=== PATIENT | female | born 1990 | race African-American/Black ===

== ENCOUNTER 2016-06-26 11:39 | Emergency (ER) | payer SELFPAY ==
[~2016-06-26] VITALS: Ht 162.6 cm; Wt 67.1 kg
[2016-06-26] MEDS ORDERED: TETRACAINE 0.5% OPHTH SOLN 4 ML BTL (SINGLE DOSE ONLY) OP ONE (12:30)
[2016-06-26] MEDS ORDERED: BSS 15 ML IR ONE (12:30)
[2016-06-26] MEDS ORDERED: FLUORESCEIN (FLUOR-I-STRIPS) 1 MG STRP OU ONE (12:30)
[2016-06-26] MEDS ORDERED: RX-GENTAMICIN SULFATE 0.3% OP 5 ML BTL OD STA (12:48)
[2016-06-26] MEDS ORDERED: IBUPROFEN 800 MG (MOTRIN) TAB PO STA (12:48)
--- NOTE | 2016-06-26 12:55 | ED EENT ---
History of Present Illness General Chief Complaint: Eye Problems Stated Complaint: R EYE SCRATCH Nursing Triage Note: AMB TO ED REPORTS HAD R INJURY IN DEC WAS SEEN IN ED AT [facility] KAI PARNELL AFTER. DID NOT GET TO USE EYE DROPS CON'T TO HAVE PROBLEM WITH R EYE. E Source: patient Exam Limitations: no limitations History of Present Illness Time seen by provider: 11:55 Initial Comments 25-year-old female patient presents to the emergency department with complaints of right eye pain and swelling. Patient states Tuesday or tuesday she noticed the rt eye was irritated. Throughout the week she has noticed symptoms becoming progressively worse. Now reports right eyelid is swollen. she did have her eyebrows waxed which caused an abrasion and burn, but states symptoms were prior to this incident. Reports blurry vision, foreign-body sensation, watering of the eye. Timing/Duration: abrupt, other (Tuesday or Tuesday onset) Location: eye (R) Prearrival Treatment: over the counter meds Modifying Factors: Worse With Other (light sensitivity. Worse with rubbing the eye.) Allergies and Home Medications Allergies Coded Allergies: hydrocodone (Verified Allergy, Unknown, 06/26/16) Home Medications Ibuprofen 800 Mg Tablet, 800 MG PO Q8H PRN for PAIN, #20 Ref 0 Prescribed by: STEPHANI MORSE on 06/26/16 1305 Review of Systems Constitutional: no symptoms reported Eyes: See HPI, Blurred Vision, Drainage (clear watering), Inflammation, Pain, Photophobia Ears: No Symptoms Reported Nose: no symptoms reported Mouth: no symptoms reported Throat: no symptoms reported Respiratory: no symptoms reported Cardiovascular: no symptoms reported Skin: see HPI Neurological: No Symptoms Reported All Other Systems Reviewed Negative Unless Noted: Yes (Negative excepted noted.) Past Wusxqnf-Xrbjgy-Yvjooi Hx Patient Social History Alcohol Use: Denies Use Recreational Drug Use: No Smoking Status: Never a Smoker Recent Foreign Travel: No Contact w/Someone Who Travel: No Recent Infectious Disease Expo: No Recent Hopitalizations: No Surgeries HX Surgeries: No Respiratory Hx Respiratory Disorders: No Cardiovascular Hx Cardiac Disorders: No Neurological Hx Neurological Disorders: No Genitourinary Hx Genitourinary Disorders: No Gastrointestinal Hx Gastrointestinal Disorders: No Musculoskeletal Hx Musculoskeletal Disorders: No Endocrine Hx Endocrine Disorders: No HEENT HX ENT Disorders: No Cancer Hx Cancer: No Psychosocial Hx Psychiatric Problems: No Reviewed Nursing Assessment Reviewed/Agree w Nursing PMH: Yes Family Medical History Significant Family History: No Pertinent Family Hx Physical Exam Vital Signs Vital Sign - Last 12Hours 06/26/16 11:45 Temp 99.4 Pulse 117 Resp 18 B/P (MAP) 110/74 Pulse Ox 98 O2 Delivery Room Air Eyes: right eye conjunctival inflammation, right eye corneal abrasion, right eye other (scabbed abrasion of the rt supraorbital ridge w/o erythema or warmth. mild swelling of the rt upper lid.), left eye normal inspection, bilateral eye EOMI, bilateral eye PERRL Ears: bilateral ear auricle normal Nose: normal inspection Mouth/Throat: normal mouth inspection, pharynx normal Neck: supple, normal inspection Neurologic/Psychiatric: alert, normal mood/affect, oriented x 3 Skin: normal color, warm/dry, other (scabbed abrasion of the rt supraorbital ridge w/o erythema or warmth. mild swelling of the rt upper lid.) Progress/Results/Core Measures Results/Orders My Orders Orders - STEPHANI MORSE Fluorescein Strips (Mzapw-B-Ttenru) (06/26/16 12:30) Balanced Salt Irrigation Soln (Bss Irrig (06/26/16 12:30) Tetracaine 0.5% Ophth Maci Sdv (Tetracai (06/26/16 12:30) Ibuprofen Tablet (Motrin Tablet) (06/26/16 12:48) Rx-Gentamicin Ophth Soln (Rx-Gentamicin (06/26/16 12:48) Medications Given in ED Vital Signs/I&O Blood Pressure Mean: 86 Departure Communication Progress Notes 2 drops of tetracaine ophthalmic solution was placed in the right eye and repeated after approximately 5 minutes. Arnold-Pen shows pressures of 15, 15, and 16 mmHg in the right eye. Patient case discussed with Dr. Etienne. Dr. Etienne requests patient to come to his office at 2 o'clock today to be evaluated. States he does not want the patient was sent home with gentamicin as he will give her medications at the office. I discussed this plan with the patient. Patient states she will cut his office at 2 o'clock as instructed. Proceed with discharge. Impression Impression: Primary Impression: Corneal abrasion Qualified Codes: S05.01XA - Injury of conjunctiva and corneal abrasion without foreign body, right eye, initial encounter Disposition: HOME, SELF-CARE Condition: Improved Departure-Patient Inst. Decision time for Depature: 13:01 Referrals: MICHEL ETIENNE OD NO,LOCAL PHYSICIAN (PCP) Primary Care Physician Patient Instructions: Corneal Abrasion (DC) Add. Discharge Instructions: All discharge instructions reviewed with patient and/or family. Voiced understanding. Medications as instructed. Tylenol Extra Strength over-the- counter as directed for pain. Cool compresses if needed. Avoid bright lights. Follow-up with Dr. Etienne has been outpatient for recheck. Return to the emergency department for worsened pain, redness, fever, drainage, headache, dizziness, vomiting, or any other concerns. GO TO DR. ETIENNE'S OFFICE AT 2:00 TODAY FOR APPOINTMENT. Scripts Ibuprofen (Ibuprofen) 800 Mg Tablet 800 MG PO Q8H Y for PAIN, #20 TAB 0 Refills Prov: STEPHANI MORSE 06/26/16 Work/School Note: Local Medical Staff Listing Images Eye 1 - Abrasion, Dye uptake (fluorescein) STEPHANI MORSE Jun 26, 2016 12:55
[2016-06-26] MEDS ORDERED: IBUP-1780 PO (13:05)
[2016-06-26 13:19] VITALS: BP 110/74
--- OUTSIDE RECORDS SUMMARY | 2016-08-01 04:48 | XMS REPORT ---
Author Author [facility] Medical Staff Organization [facility] Address [address] [place] [id number] Phone [phone] Care Team Providers Care Learning Center Coordinator Name Role Phone GAVIN RUBY PP [phone] Summary purpose TRANSITION OF CARE AUTO GENERATION Chief Complaint and Reason for Visit Admit Diagnosis 1 BACKACHE NOS Problem list No authorized problems tracked for continuity of care are available for this visit. Encounters No authorized problems tracked for encounter diagnoses are available for this visit. Medications No medications recorded for this patient visit Allergies, adverse reactions, alerts Allergen Category Ingredient Status Reaction Severity Onset Hydrocodone Drug Allergy Hydrocodone Confirmed or Verified Seizures Severe Adolescence acetaminophen Drug Allergy acetaminophen Confirmed or Verified Neomycin Drug Allergy Neomycin Confirmed or Verified adhesive Drug Allergy adhesive Confirmed or Verified Immunizations No immunizations recorded for this patient visit Relevant diagnostic tests and/or laboratory data RESULTS Routine Urinalysis [id number]:00:00 Result Normal Range Units Color Straw Clarity Clear Specific [place] 1.028 1.003-1.035 pH 5.5 4.5-8.0 Glucose NEGATIVE Bilirubin 1+ Ketones 1+ Protein TRACE Urobilinogen 0.2 0-0.2 E.U./dL Nitrites NEGATIVE Blood 3+ Leukocytes NEGATIVE WBCs No WBC's Seen RBCs Too numerous to count Squamous Epithelial Few Bacteria Rare Amount Mucous 2+ Chemistry [id number]:50:00 Result Normal Range Units Sodium 138 134-145 mEq/l Potassium 3.7 3.5-5.1 mEq/l Chloride 99 98-107 mEq/l CO2 25.0 22-28 mEq/l Glucose 97 70-105 mg/dl BUN 7 7-18 mg/dl Creatinine 0.89 0.6-1.0 mg/dl Calcium 8.9 8.4-10.2 mg/dl TP - Total Protein 8.2 6.0-8.3 g/dl Albumin 4.7 3.5-5 g/dl Bilirubin - Total 0.7 0.1-1.0 mg/dl AST 17 10-42 IU/L ALT 25 12-65 IU/L ALP 68 25-72 IU/L Osmolality L 273.6 280-300 mOsm/L Albumin/Globulin Ratio 1.3 0-8 Anion GAP 14.0 8-16 BUN/Creatinine Ratio L 7.9 10-20 Estimated GFR 94 >=60 mL/min/1.7 Hematology [id number]:50:00 Result Normal Range Units WBC H 14.9 4.8-10.8 103/uL RBC 4.5 4.2-5.4 106/uL HGB 13.4 12.0-16.0 g/dl HCT 40.0 36.9-47.0 % MCV 88.1 81-99 FL MCH 29.5 27-31 pg MCHC 33.5 33-37 g/dl RDW 13.2 11.5-15.5 % PLT 297 130-400 103/uL MPV 10.2 7.3-10.4 FL Neutro % H 82.0 40-70 % Lymph % L 11.5 20-40 % [place] % 5.9 0-10.0 % Eos % 0.3 0-7.0 % Baso % 0.3 0-2 % Neutro # H 12.2 1.5-7.5 103/uL Lymph # 1.7 0.9-4.0 103/uL [place] # H 0.9 0-0.8 103/uL Eos # 0.1 0-0.6 103/uL Baso # 0.0 0-0.1 103/uL Body Fluid [id number]:00:00 Result Normal Range Units pH 5.5 4.5-8.0 Radiology Results [id number]:13:00 CT RENAL STONE CHERYL PACs Image DATE OF EXAM: Jul 15 2014 [id number] RENAL STONE PROTOCOL WO CONTR : RADIOLOGY REPORT DATE OF SERVICE: 07/15/14 HISTORY: Patient has right back pain with hematuria. CT RENAL STONE [id number] HOURS Images were obtained from diaphragms to symphysis pubis. No intravenous or oral contrast was utilized. This patient has very little intraperitoneal and retroperitoneal fat structures. Lung bases are clear. The liver and spleen are unremarkable. No biliary ductal dilatation is seen and no calcified stones are seen in gallbladder. Stomach, pancreas, and adrenal glands are normal. No aneurysm of aorta is seen. No adenopathy is identified in abdomen or pelvis. The kidneys show faint calcification in medullary aspect of both kidneys diffusely. This suggests "medullary sponge kidney." There is a 3 mm nonobstructing calculus in the mid collecting system of the right kidney. No hydronephrosis or mass in either kidney is seen. The ureters are not well delineated and cannot be followed due to lack of surrounding fat. However, there are no abnormal calcifications along the course of the ureters so no ureteral calculi are suspected. Bowel appears normal. The appendix is not seen as a separate structure with any absolute certainty, but there is no secondary evidence of appendicitis. No mesenteric mass or ascites are seen. There is no hernia. IMPRESSION: Probable medullary sponge kidney process. 3 mm nonobstructing calculus within the right kidney mid collecting system. No hydronephrosis or ureteral calculi. Otherwise nonspecific with some limitations due to patient's lack of intraperitoneal and retroperitoneal fat. DO CALI Zurita/barbara 07/15/2014 08:14:00 / 07/15/2014 08:51:28 cc:Gavin Jama PA-C This document has been electronically Signed by: On: DATE OF EXAM: Jul 15 2014 [id number] RENAL STONE PROTOCOL WO CONTR : RADIOLOGY REPORT DATE OF SERVICE: 07/15/14 HISTORY: Patient has right back pain with hematuria. CT RENAL STONE [id number] HOURS Images were obtained from diaphragms to symphysis pubis. No intravenous or oral contrast was utilized. This patient has very little intraperitoneal and retroperitoneal fat structures. Lung bases are clear. The liver and spleen are unremarkable. No biliary ductal dilatation is seen and no calcified stones are seen in gallbladder. Stomach, pancreas, and adrenal glands are normal. No aneurysm of aorta is seen. No adenopathy is identified in abdomen or pelvis. The kidneys show faint calcification in medullary aspect of both kidneys diffusely. This suggests "medullary sponge kidney." There is a 3 mm nonobstructing calculus in the mid collecting system of the right kidney. No hydronephrosis or mass in either kidney is seen. The ureters are not well delineated and cannot be followed due to lack of surrounding fat. However, there are no abnormal calcifications along the course of the ureters so no ureteral calculi are suspected. Bowel appears normal. The appendix is not seen as a separate structure with any absolute certainty, but there is no secondary evidence of appendicitis. No mesenteric mass or ascites are seen. There is no hernia. IMPRESSION: Probable medullary sponge kidney process. 3 mm nonobstructing calculus within the right kidney mid collecting system. No hydronephrosis or ureteral calculi. Otherwise nonspecific with some limitations due to patient's lack of intraperitoneal and retroperitoneal fat. Karina Perez DO MW/nh 07/15/2014 08:14:00 / 07/15/2014 08:51:28 cc:Gavin Jama PA-C This document has been electronically Signed by: KARINA PEREZ DO On: Jul 15 20145:13P Result Amended on 2014-07-15 at 17:14:00. Previous status was IN. [id number]:50:00 Result Normal Range Units MPV 10.2 7.3-10.4 FL History of procedures Procedure Code Code Type Description Date Performed Performing Physician 26239 CPT-4 COMPLETE CBC W/AUTO DIFF WBC 07-14-2014 VANE FINN 92396 CPT-4 COMPREHEN METABOLIC PANEL 07-14-2014 VANE FINN 40900 CPT-4 ROUTINE VENIPUNCTURE 07-14-2014 EMMA CROCKETT 39896 CPT-4 URINALYSIS, AUTO W/SCOPE 07-15-2014 VANE FINN 24330 CPT-4 URINE TEST 07-15-2014 VANE FINN 45429 CPT-4 CT ABD & PELVIS W/O CONTRAST 07-15-2014 VANE FINN J1885 CPT-4 TORADOL SYR 30MG/ML 07-14-2014 VANE FINN J2550 CPT-4 PROMETHAZIEN 25MG/ML 07-14-2014 VANE FINN J2060 CPT-4 LORAZEPAM INJECTION 07-14-2014 VANE FINN J2270 CPT-4 MORPHINE SULFATE INJECTION 07-14-2014 VANE FINN 23097 CPT-4 EMERGENCY DEPT VISIT 07-14-2014 VANE FINN 29230 CPT-4 EMERGENCY DEPT VISIT 07-14-2014 VANE FINN 47867 CPT-4 THER/PROPH/DIAG INJ, IV PUSH 07-14-2014 VANE FINN 55586 CPT-4 TX/PRO/DX INJ NEW DRUG ADDON 07-14-2014 VANE FINN 03690 CPT-4 HYDRATE IV INFUSION, ADD-ON 07-14-2014 VANE FINN Functional status Functional Status Finding Observation Time Abdomen Appearance flat : Abdomen soft :30 Olivas no : Urination urgency :30 Quality sym/unlabored : Cough absent : Secretions no : Airway natural : Chest Tube no : Oxygen no : Temp >100.4 no : Temp <96.8 no : Chills with rigors no : HR > 90bpm yes : Respirations > 20 no : Systolic <90 no : headache stiff neck no :30 IV Site Location Right AC :33 IV Type peripheral :33 IV Site Information discontinued :33 IV Site Start Attmpt 1 times :00 IV Site Rick 20 :00 IV Site Appearance WNL :00 IV Site Color clear :00 IV Site Patent yes :00 Dressing Type occlusive :00 Nursing Note Patient discharge to home. No changes to treatment made at this time. she ambulated from unit in stable condition. :12 Vital signs Type Value Date Respiration Rate 18breaths per minute :12 Pulse 104beats per minute :12 Oxygen Saturation 99% :12 BP Systolic 105mmHg :12 BP Diastolic 59mmHg :12 Temperature 98.6F :12 Height 63inches :35 Weight 123LB :35 Social history No Social History or smoking status observations were recorded for this visit. ( Unknown if ever smoked.) Treatment Plan No treatment plan text is available for this visit. Hospital discharge instructions Dismissal Condition good Disposition on DC home DC Inst/Educ Give yes Med/Side Effects Rev yes
--- OUTSIDE RECORDS SUMMARY | 2016-08-01 04:49 | XMS REPORT ---
Author Author [facility] Medical Staff Organization [facility] Address [address] [id number] Phone [phone] Care Team Providers Care Hunter Trapper Name Role Phone GAVIN RUBY PP [phone] Summary purpose TRANSITION OF CARE AUTO GENERATION Chief Complaint and Reason for Visit No authorized Reason for Visit (Admitting Diagnosis) is available for this visit. Problem list No authorized problems tracked for [...] tests and/or laboratory data RESULTS Routine Urinalysis [id number]:00:00 Result Normal Range Units Color Straw Clarity Clear Specific [place] 1.028 1.003-1.035 pH 5.5 4.5-8.0 Glucose NEGATIVE Bilirubin 1+ Ketones 1+ Protein TRACE Urobilinogen 0.2 0-0.2 E.U./dL Nitrites NEGATIVE Blood 3+ Leukocytes NEGATIVE WBCs No WBC's Seen RBCs Too numerous to count Squamous Epithelial Few Bacteria Rare Amount Mucous 2+ Chemistry [id number]:50:00 Result Normal Range Units Sodium 138 134-145 [...] 10-20 Estimated GFR 94 >=60 mL/min/1.7 Hematology [id number]:50:00 Result Normal Range Units WBC H 14.9 4.8-10.8 103/uL RBC 4.5 4.2-5.4 106/uL HGB 13.4 12.0-16.0 g/dl HCT 40.0 36.9-47.0 % MCV 88.1 81-99 FL MCH 29.5 27-31 pg MCHC 33.5 33-37 g/dl RDW 13.2 11.5-15.5 % PLT 297 130-400 103/uL MPV 10.2 7.3-10.4 FL Neutro % H 82.0 40-70 % Lymph % L 11.5 20-40 % [place] % 5.9 0-10.0 % Eos % 0.3 0-7.0 % Baso % 0.3 0-2 % Neutro # H 12.2 1.5-7.5 103/uL Lymph # 1.7 0.9-4.0 103/uL [place] # H 0.9 0-0.8 103/uL Eos # 0.1 0-0.6 103/uL Baso # 0.0 0-0.1 103/uL Body Fluid [id number]:00:00 Result Normal Range Units pH 5.5 4.5-8.0 Radiology Results [id number]:13:00 CT RENAL STONE CHERYL PACs Image DATE OF EXAM: Jul 15 2014 [id number] RENAL STONE PROTOCOL WO CONTR : RADIOLOGY REPORT DATE OF SERVICE: 07/15/14 HISTORY: Patient has right back pain with hematuria. CT RENAL STONE [id number] HOURS Images were obtained from diaphragms to [...] Zurita/barbara 07/15/2014 08:14:00 / 07/15/2014 08:51:28 cc:Gavin aJma PA-C This document has been electronically Signed by: On: DATE OF EXAM: Jul 15 2014 [id number] RENAL STONE PROTOCOL WO CONTR : RADIOLOGY REPORT DATE OF SERVICE: 07/15/14 HISTORY: Patient has right back pain with hematuria. CT RENAL STONE [id number] HOURS Images were obtained from diaphragms to [...] intraperitoneal and retroperitoneal fat. Karina Perez DO MW/ia 07/15/2014 08:14:00 / 07/15/2014 08:51:28 cc:Gavin Jama PA-C This document has been electronically Signed by: KARINA PEREZ DO On: Jul 15 20145:13P Result Amended on 2014-07-15 at 17:14:00. Previous status was MI. :50:00 Result Normal Range Units MPV 10.2 7.3-10.4 FL History of procedures No procedures recorded for this patient visit. Functional status Functional Status Finding Observation Time Abdomen Appearance flat :30 Abdomen soft :30 Olivas no [id number]:30 Urination urgency :30 Quality sym/unlabored :30 Cough absent :30 Secretions no :30 Airway natural :30 Chest Tube no :30 Oxygen no :30 Temp >100.4 no : Temp <96.8 no :30 Chills with rigors no :30 HR > 90bpm yes :30 Respirations > 20 no :30 Systolic <90 no :30 headache stiff neck no :30 IV Site Location Right AC :33 IV Type peripheral :33 IV Site Information discontinued :33 IV Site Start Attmpt 1 times [id number]:00 IV Site Rick 20 [id number]:00 IV Site Appearance WNL [id number]:00 IV Site Color clear :00 IV Site [...]
--- OUTSIDE RECORDS SUMMARY | 2016-08-01 04:49 | XMS REPORT | Continuity of Care Document ---
Demographics Preferred Language Unknown Marital Status Unknown Pentecostalism Affiliation Unknown Race Unknown Ethnic Group Unknown Author Author [facility] Organization [facility] Address Unknown Phone Unavailable Allergies Active Description Code Type Severity Reaction Onset Reported/Identified Relationship to Patient Clinical Status Yes acetaminophen 1605 Drug Allergy N/A N/A Confirmed or Verified Yes adhesive 3245 Drug Allergy N/A N/A Confirmed or Verified Yes Hydrocodone 1554 Drug Allergy Severe Seizures Yes Neomycin 2775 Drug Allergy N/A N/A Confirmed or Verified Medications Problems Procedures Results Test Result Range CBC WITH DIFF - 07/14/14 00:00 BASO% 0.3 % 0-2 EOS% 0.3 % 0-7.0 HCT 40.0 % 36.9-47.0 HGB 13.4 G/DL 12.0-16.0 LYMPH% 11.5 % 20-40 MCH 29.5 PG 27-31 MCHC 33.5 G/DL 33-37 MCV 88.1 FL 81-99 MONO% 5.9 % 0-10.0 MPV 10.2 FL 7.3-10.4 NEUTRO% 82.0 % 40-70 PLT 297 10^3u 130-400 RBC 4.5 10^6u 4.2-5.4 RDW 13.2 % 11.5-15.5 WBC 14.9 10^3u 4.8-10.8 NEUTRO# 12.2 10^3u 1.5-7.5 LYMPH# 1.7 10^3u 0.9-4.0 MONO# 0.9 10^3u 0-0.8 EOS# 0.1 10^3u 0-0.6 BASO# 0.0 10^3u 0-0.1 CMP - 07/14/14 00:00 ALB 4.7 G/DL 3.5-5 ALP 68 IU/L 25-72 ALT 25 IU/L 12-65 AST 17 IU/L 10-42 BCR 7.9 10-20 BUN 7 MG/DL 7-18 CA 8.9 MG/DL 8.4-10.2 CL 99 MEQ/L 98-107 CO2 25.0 MEQ/L 22-28 CREA 0.89 MG/DL 0.6-1.0 EGFR 94 eGFR >=60 GLU 97 MG/DL 70-105 K 3.7 MEQ/L 3.5-5.1 NA 138 MEQ/L 134-145 OSMSC 273.6 MOSML 280-300 TBIL 0.7 MG/DL 0.1-1.0 TP 8.2 G/DL 6.0-8.3 Albumin/Globulin Ratio 1.3 0-8 Anion Gap 14.0 8-16 UCG GROUP - 07/15/14 00:00 UCG N Negative UA - 07/15/14 00:00 PH 5.5 4.5-8.0 SG 1.028 1.003-1.035 UABILI 1+ UABLD 3+ UACOLOR STRAW UAGLU NEGATIVE UAKET 1+ UALEUK NEGATIVE UANIT NEGATIVE UAURO 0.2 0-0.2 CLARITY CL PROTEIN TRACE UA WBC NOWBC UA RBC TNTC SQUAMOUS EPITHELIAL CELLS FEW BACTERIA RARE MUCOUS 2+ Encounters ACCT No. Visit Date/Time Discharge Status Pt. Type Provider Facility Loc./Unit Complaint [id number] 07/14/2014 22:25:00 07/15/2014 03 :15:00 DIS Emergency VANE FINN [facility] EMR [id number] 08/09/2013 20:02:00 08/09/2013 20 :40:00 DIS Emergency LITO GOVEA W [facility] EMR [id number] 08/09/2013 08:23:00 08/09/2013 08 :40:00 DIS Emergency VIKI ANGUIANO [facility] EMR [id number] 02/17/2014 00:00:00 Document Registration
--- OUTSIDE RECORDS SUMMARY | 2016-08-01 04:49 | XMS REPORT | CCD ---
Author Author NICHOLAS LAMBERT Organization Unknown Address [address] [address] [place], [place] [id number] Care Team Providers Care Clip Wrapper Name Role Phone AIMEE ER, PEPE DO Attphys AIMEE VERONICA, PEPE DO Prisurg Vital Signs Unknown or Not Available. Allergies Unknown or Not Available. Procedures Procedure Code Procedure Type Date CBC W/ AUTO DIFF (RFLX MAN DIFF IF IND) 6865743 SNOMED CT 01/13/2015 COMPREHENSIVE METABOLIC PANEL 335723728 SNOMED CT 2014 C REACTIVE PROTEIN 35461573 SNOMED CT 01/13/2015 CULTURE BLOOD 50112264 SNOMED CT 01/13/2015 BETA HCG QUANTITATIVE 144566901 SNOMED CT 01/13/2015 LACTIC ACID 1251561 SNOMED [address] 01/13/2015 UA W/MICRO C&S IF IND 611637035 SNOMED CT 01/13/2015 ^CBC W/AUTO DIFF 3756958 SNOMED CT 01/13/2015 History of Immunizations Immunization Code Date Hep B, adolescent or pediatric 08 02/23/2002 Hep B, adolescent or pediatric 04/13/2002 Hep B, adolescent or pediatric 12/18/2002 Td (adult), adsorbed 12/18/2002 Problems Unknown or Not Available. Results BETA HCG QUANTITATIVE - Collect Date/Time: 01/13/2015 15:05 Test Name Code Test Result Test Units Test Ref Range BETA HCG QUANT 82326-3 <1 MIU/ML COMPREHENSIVE METABOLIC PANEL - Collect Date/Time: 01/13/2015 15:05 Test Name Code Test Result Test Units Test Ref Range GLUCOSE 2345-7 84 MG/DL L=70 H=100 SODIUM 2951-2 141 MEQ/L L=135 H=148 POTASSIUM 2823-3 3.6 MEQ/L L=3.5 H=5.3 CHLORIDE 2075-0 107 MEQ/L L=96 H=110 CO2 2028-9 24 MEQ/L L=22 H=29 BUN 3094-0 12 MG/DL L=8 H=22 CREATININE 2160-0 0.7 MG/DL L=0.6 H=1.6 SGOT/AST 1920-8 11 IU/L L=10 H=40 SGPT/ALT 1742-6 10 IU/L L=8 H=54 ALK PHOS 6768-6 66 IU/L L=35 H=115 TOTAL PROTEIN 2885-2 7.0 G/DL L=5.5 H=8.5 ALBUMIN 1751-7 4.5 G/DL L=3.1 H=5.4 TOTAL BILI 1975-2 0.5 MG/DL L=0.0 H=1.5 CALCIUM 22054-6 9.6 MG/DL L=8.2 H=10.6 AGE 24 yrs GFR NonAA 102 GFR AA 124 eGFR >60 N/A eGFR AA* >60 N/A CBC W/ AUTO DIFF (RFLX MAN DIFF IF IND) - Collect Date/Time: 01/13/2015 15:05 Test Name Code Test Result Test Units Test Ref Range WBC 87280-4 10.5 TH/CMM L=4.5 H=10.8 RBC 789-8 4.62 ML/CMM L=4.20 H=5.40 HGB 718-7 13.7 G/DL L=12.0 H=16.0 HCT 4544-3 40.6 % L=37.0 H=47.0 MCV 88 FL L=81 H=99 MCH 29.7 PG L=27.0 H=33.0 MCHC 33.7 G/DL L=31.0 H=36.0 RDW SD 43 FL L=36 H=50 RDW CV 13.4 % L=0.0 H=14.8 MPV 10.0 FL L=9.3 H=12.5 PLT 777-3 271 TH/CMM L=130 H=440 NRBC# 0.00 TH/CMM L=0.00 H=0.00 NRBC% 0.0 /100WBC L=0.0 H=2.0 %NEUT 76.2 % %LYMP 15.1 % %MONO 7.6 % %EOS 0.9 % %BASO 0.2 % #NEUT 7.98 TH/CMM L=2.10 H=8.20 #LYMP 1.58 TH/CMM L=0.90 H=5.20 #MONO 0.79 TH/CMM L=0.16 H=1.00 #EOS 0.09 TH/CMM L=0.00 H=0.80 #BASO 0.02 TH/CMM L=0.00 H=0.20 MANUAL DIFF NOT IND N/A UA W/MICRO C&S IF IND - Collect Date/Time: 01/13/2015 17:50 Test Name Code Test Result Test Units Test Ref Range COLOR YELLOW N/A NL: YELLOW APPEARANCE CLEAR N/A NL: CLEAR SPEC GRAV >=1.030 N/A NL: 1.002 - 1.022 pH 5.5 N/A NL: 5 - 9 PROTEIN 30 N/A NL: NEGATIVE mg/dl GLUCOSE NEGATIVE N/A NL: NEGATIVE mg/dl KETONE NEGATIVE N/A NL: NEGATIVE mg/dl BILIRUBIN NEGATIVE N/A NL: NEGATIVE BLOOD LARGE N/A NL: NEGATIVE NITRITE NEGATIVE N/A NL: NEGATIVE LEUK SCREEN NEGATIVE N/A NL: NEGATIVE WBC/HPF 0-5 N/A NL: NEGATIVE RBC/HPF 10-20 N/A NL: NEGATIVE CASTS/LPF NEGATIVE N/A NL: NEGATIVE CRYSTALS NEGATIVE N/A NL: NEGATIVE MUCOUS THRDS 1+ N/A NL: NEGATIVE BACTERIA FEW N/A NL: NEGATIVE EPITH CELLS FEW SQUAMOUS N/A NL: NEGATIVE TRICHOMONAS NEGATIVE N/A NL: NEGATIVE YEAST NEGATIVE N/A NL: NEGATIVE CULT SET UP? NO N/A C REACTIVE PROTEIN - Collect Date/Time: 01/13/2015 15:05 Test Name Code Test Result Test Units Test Ref Range C REACTIVE PROTEIN 1988-5 <0.5 MG/DL L=0.0 H= 1.0 LACTIC ACID - Collect Date/Time: 01/13/2015 15:05 Test Name Code Test Result Test Units Test Ref Range LACTIC ACID 2524-7 1.6 mmol/L L=0.5 H=1.6 Active Medications Unknown or Not Available. Medications Administered During Visit Unknown or Not Available. Encounters Encounter Diagnosis Diagnosis Code Start Date Pelvic and perineal pain 277351170 01/13/2015 Social History Smoking Status Code Start Date End Date Current every day smoker [id number] Patient Decision Aids Unknown or Not Available. Discharge Instructions You were admitted to [facility] on 01/13/2015 with a principal diagnosis of Pelvic and perineal pain . You were discharged from [facility] on 01/13/2015. Should you have any questions prior to discharge, please contact a member of your healthcare team. If you have left the hospital and have any questions, please contact your primary care physician. Chief Complaint and Reason For Visit Chief Complaint Date of Onset VAGINAL BLEEDING 8WKS Function Status Unknown or Not Available. Plan of Care Unknown or Not Available. Referral/Transition of Care Unknown or Not Available.
== END 2016-06-26 13:22 | disposition home or self-care (01) ==
LOC: ER 11:42
DX: S05.01XA Injury of conjunctiva and corneal abrasion without foreign body, right eye, initial encounter (principal); W22.8XXA Striking against or struck by other objects, initial encounter; Y99.8 Other external cause status
CPT/HCPCS: 99282